=== PATIENT | male | born 1930 | race Caucasian/White ===

== ENCOUNTER 2018-04-12 10:38 | Emergency (ER) | payer MEDICARE ==
[2018-04-12 10:49] VITALS: BP 160/81
[2018-04-12] MEDS ORDERED: TETANUS/DIPHTHERIA/PERTUSSIS 0.5 ML SYRINGE IM ONE (10:55)
--- NOTE | 2018-04-12 12:10 | ED Physician Documentation ---
PD HPI UPPER EXT INJURY - Stated complaint Stated Complaint: LEFT FINGER LAC - Chief complaint Chief Complaint: Laceration - History obtained from History obtained from: Patient - History of Present Illness Location: Left (Left-handed gentleman who is not up-to-date on tetanus crushed the tip of the left fourth finger under a flower pot yesterday around 4:30 in the afternoon. It will not stop bleeding.) Review of Systems Constitutional: denies: Fever, Chills Musculoskeletal: reports: Reviewed and negative PD PAST MEDICAL HISTORY - Past Medical History Past Medical History: Yes Cardiovascular: Hypertension - Past Surgical History Past Surgical History: Yes Cardiovascular: CABG - Present Medications Home Medications: Ambulatory Orders Medication Instructions Recorded Confirmed Aspirin 325 mg 04/12/18 Cephalexin [Keflex] 500 mg PO QID #20 capsule 04/12/18 Furosemide 20 mg 04/12/18 Metoprolol Succinate 25 mg 04/12/18 Potassium Chloride 10 meq 04/12/18 Simvastatin 10 mg 04/12/18 - Allergies Allergies/Adverse Reactions: Allergies Allergy/AdvReac Type Severity Reaction Status Date / Time No Known Drug Allergies Allergy Verified 04/12/18 10:49 - Social History Does the pt smoke?: No Smoking Status: Never smoker Does the pt drink ETOH?: No Does the pt have substance abuse?: No - Immunizations Immunizations are current?: No Immunizations: TDAP >10years/unknown PD ED PE NORMAL - Vitals Vital signs reviewed: Yes - General General: Alert and oriented X 3, No acute distress - Extremities Extremities: Other (Left index finger: On the radial side of the tip there is a 1 cm shallow laceration with a 50% subungual hematoma and he is tender at the tip but without deformity or limited range of motion. Normal neurovascular status.) - Neuro Neuro: Alert and oriented X 3, Normal speech Results - Vitals Vitals: Vital Signs - 24 hr 04/12/18 10:45 Temperature 36.4 C L Heart Rate 58 L Respiratory 16 Rate Blood Pressure 160/81 H O2 Saturation 95 Oxygen O2 Source Room air PD MEDICAL DECISION MAKING - ED course ED course: The wound was irrigated and dressed with Gelfoam and tube gauze to stop the bleeding. I discussed with him that is really generally too late to stitch it but it does not really appear to need sutures anyway. He was counseled on wound care. I recommended a x-ray, he may have a tuft fracture which he declined "I do not think it is broken." I will put him on a few days of prophylactic antibiotics in case he is wrong. - Sepsis Event Vital Signs: Vital Signs - 24 hr 04/12/18 10:45 Temperature 36.4 C L Heart Rate 58 L Respiratory 16 Rate Blood Pressure 160/81 H O2 Saturation 95 Oxygen O2 Source Room air Departure - Departure Disposition: Home, Self Care Clinical Impression: Laceration Condition: Good Record reviewed to determine appropriate education?: Yes Instructions: ED Laceration Hand Prescriptions: Cephalexin [Keflex] 500 mg PO QID #20 capsule Comments: Keep the current dressing on until Tuesday, after that you can take it off and briefly wash with soap and water and keep it covered with a Band-Aid. Follow- up with your doctor in a week for a wound check and also blood pressure check as it was 160 systolic in the emergency department today. Discharge Date/Time: 04/12/18 12:12
== END 2018-04-12 12:12 | disposition home or self-care (01) ==
LOC: ED 10:38
DX: S61.215A Laceration without foreign body of left ring finger without damage to nail, initial encounter (principal); I10 Essential (primary) hypertension; Z79.82 Long term (current) use of aspirin; W23.0XXA Caught, crushed, jammed, or pinched between moving objects, initial encounter
CPT/HCPCS: 90471; 99283